=== PATIENT | male | born 1935 | race Caucasian/White ===

== ENCOUNTER 2022-01-18 19:33 | Inpatient (IN) | payer MEDICARE ==
[~2022-01-18] VITALS: Ht 175.3 cm; Wt 76.2 kg
[2022-01-18] MEDS ORDERED: SODIUM CHLORIDE 0.9% 1000ML 1,000 ML IV STA (19:36)
[2022-01-18] MEDS ORDERED: ONDANSETRON HCL INJ 2MG/ML 2ML 2 MG/ML VIAL IV STA (19:39)
[2022-01-18 20:14] LABS: BASOPHILS # (AUTO) 0.1 (0.0-0.1); BASOPHILS % 0.6 % (0.0-1.0); EOSINOPHILS # (AUTO) 0.1 (0.0-0.4); EOSINOPHILS % 1.2 % (0.0-6.0); HEMATOCRIT 42.3 % (38.2-49.6); HEMOGLOBIN 13.4 g/dL (14.0-18.0); LYMPHOCYTES # (AUTO) 1.4 (1.0-3.2); LYMPHOCYTES % 16.7 % (18.0-39.1); MEAN CORPUSCULAR HEMOGLOBIN 29.5 pg (28-32); MEAN CORPUSCULAR HGB CONC 31.7 g/dL (31-35); MEAN CORPUSCULAR VOLUME 93.2 fL (81-99); MONOCYTES # (AUTO) 0.7 (0.2-0.8); NEUTROPHILS # (AUTO) 5.8 (2.1-6.9); NEUTROPHILS % 71.9 % (38.7-80.0); PLATELET COUNT 173 x10e3/uL (140-360); RED BLOOD COUNT 4.54 x10e6/uL (4.3-5.7); RED CELL DISTRIBUTION WIDTH 15.3 % (11.7-14.4)
[2022-01-18 20:21] LABS: CLARITY,URINE CLEAR (CLEAR); COLOR,URINE YELLOW (YELLOW); LEUKOCYTE ESTERASE ,URINE NEGATIVE (NEGATIVE); NITRITE,URINE NEGATIVE (NEGATIVE); PROTEIN,URINE DIPSTICK NEGATIVE (NEGATIVE)
[2022-01-18 20:22] LABS: KETONES,URINE NEGATIVE (NEGATIVE); URINE UROBILINOGEN 1 mg/dL (0.2 - 1)
[2022-01-18 20:30] LABS: INR 1.69; PROTHROMBIN TIME 21.2 seconds (11.9-14.5)
[2022-01-18 20:31] LABS: PARTIAL THROMBOPLASTIN TIME 39.8 seconds (23.8-35.5)
[2022-01-18 20:36] LABS: BACTERIA,URINE FEW /HPF; EPITHELIAL CELLS,URINE RARE /LPF; RBC,URINE 21-50 /HPF (0-5); WBC,URINE (MAN) 0-5 /HPF (0-5)
[2022-01-18 20:39] LABS: ALBUMIN 4.1 g/dL (3.5-5.0); ANION GAP 16.5 mmol/L (8-16); CALCIUM 10.7 mg/dL (8.4-10.2); CREATININE, SERUM 1.52 mg/dL (0.72-1.25); POTASSIUM 4.5 mmol/L (3.5-5.1)
[2022-01-18 20:46] LABS: CREATINE KINASE MB 1.4 ng/mL (0-5.0)
[2022-01-18] MEDS ORDERED: IOPAMIDOL 370 MG/ML 100 ML INFUS..BTL INJ ONE (20:59)
[2022-01-18] MEDS ORDERED: Morphine 4mg INJECTION 4 MG/ML INJ IV PRN (22:30)
[2022-01-18] MEDS ORDERED: ONDANSETRON HCL INJ 2MG/ML 2ML 2 MG/ML VIAL IV PRN (22:30)
[2022-01-19] VITALS (8 sets, daily range): BP systolic 113–160; BP diastolic 60–72
[2022-01-19] MEDS: SODIUM CHLORIDE 0.9% 1000ML 1,000 ML IV SCH ×2 (01:54→06:11)
[2022-01-19 07:08] LABS: BASOPHILS # (AUTO) 0.1 (0.0-0.1); BASOPHILS % 0.9 % (0.0-1.0); EOSINOPHILS # (AUTO) 0.2 (0.0-0.4); EOSINOPHILS % 2.9 % (0.0-6.0); HEMATOCRIT 35.9 % (38.2-49.6); HEMOGLOBIN 11.4 g/dL (14.0-18.0); LYMPHOCYTES # (AUTO) 1.5 (1.0-3.2); LYMPHOCYTES % 23.1 % (18.0-39.1); MEAN CORPUSCULAR HEMOGLOBIN 29.4 pg (28-32); MEAN CORPUSCULAR HGB CONC 31.8 g/dL (31-35); MEAN CORPUSCULAR VOLUME 92.5 fL (81-99); MONOCYTES # (AUTO) 0.7 (0.2-0.8); MONOCYTES % 9.8 % (4.4-11.3); NEUTROPHILS # (AUTO) 4.1 (2.1-6.9); NEUTROPHILS % 62.2 % (38.7-80.0); PLATELET COUNT 153 x10e3/uL (140-360); RED BLOOD COUNT 3.88 x10e6/uL (4.3-5.7); RED CELL DISTRIBUTION WIDTH 15.4 % (11.7-14.4)
[2022-01-19 07:39] LABS: ANION GAP 12.3 mmol/L (8-16); CALCIUM 8.5 mg/dL (8.4-10.2); CREATININE, SERUM 1.08 mg/dL (0.72-1.25); POTASSIUM 4.3 mmol/L (3.5-5.1)
[2022-01-19 08:11] LABS: CREATINE KINASE MB 1.3 ng/mL (0-5.0)
[2022-01-19] MEDS ORDERED: ACETAMINOPHEN 325 MG TAB PO PRN (09:45)
[2022-01-19] MEDS ORDERED: MECLIZINE HCL 12.5 MG TAB PO PRN ×2 (12:15→14:00)
[2022-01-19] MEDS ORDERED: CARBAMAZEPINE200 MG PO (13:23)
[2022-01-19] MEDS ORDERED: COENZYME Q-10200 MG PO (13:23)
[2022-01-19] MEDS ORDERED: FISH OIL 1,0001 EAC2 PO (13:23)
[2022-01-19] MEDS ORDERED: DOCUSATE SODIU100 MG PO (13:23)
[2022-01-19] MEDS ORDERED: FLONASE ALLERG9.9 ML INH (13:23)
[2022-01-19] MEDS ORDERED: BUSPIRONE HCL10 MG PO (13:23)
[2022-01-19] MEDS ORDERED: FENOFIBRATE145 MG PO (13:23)
[2022-01-19] MEDS ORDERED: ARTIFICIAL TEAR15 ML OS (13:23)
[2022-01-19] MEDS ORDERED: SENNA LAX8.6 MG PO (13:23)
[2022-01-19] MEDS ORDERED: ACETAMINOPHEN325 M1 PO (13:23)
[2022-01-19] MEDS ORDERED: LOSARTAN POTAS100 MG PO (13:23)
[2022-01-19] MEDS ORDERED: MULTI-VITAMIN1 EACH PO (13:23)
[2022-01-19] MEDS ORDERED: BACLOFEN10 MG PO (13:23)
[2022-01-19] MEDS ORDERED: ASCORBIC ACID500 M2 PO (13:23)
[2022-01-19] MEDS ORDERED: XARELTO20 MG PO (13:23)
[2022-01-19] MEDS ORDERED: AMLODIPINE BESY10 MG PO (13:23)
[2022-01-19] MEDS ORDERED: MIRALAX17 GM PO (13:23)
[2022-01-19] MEDS ORDERED: CRESTOR10 MG PO (13:23)
[2022-01-19] MEDS ORDERED: ASPIRIN81 MG PO (13:23)
[2022-01-19] MEDS ORDERED: ONDANSETRON ODT8 MG PO (13:23)
[2022-01-19] MEDS ORDERED: EXCEDRIN MIGRA1 EAC3 PO (13:23)
[2022-01-19] MEDS ORDERED: SODIUM CHLORIDE 0.9% 1000ML 1,000 ML IV SCH (14:00)
[2022-01-19 14:39] LABS: CREATINE KINASE MB 1.4 ng/mL (0-5.0)
[2022-01-19] MEDS ORDERED: PROMETHAZINE 12.5MG/ NACL 0.9% 12.5 MG/50 ML BAG IV PRN (17:45)
[2022-01-19] MEDS: ENOXAPARIN INJ 80 MG/0.8 ML SYR SC SCH (20:38)
[2022-01-19] MEDS: AMLODIPINE BESYLATE 10 MG TAB PO SCH (20:39)
[2022-01-20] VITALS (7 sets, daily range): BP systolic 112–156; BP diastolic 56–96
[2022-01-20 06:09] LABS: BASOPHILS # (AUTO) 0.1 (0.0-0.1); BASOPHILS % 0.8 % (0.0-1.0); EOSINOPHILS # (AUTO) 0.2 (0.0-0.4); EOSINOPHILS % 2.4 % (0.0-6.0); HEMATOCRIT 35.1 % (38.2-49.6); HEMOGLOBIN 11.2 g/dL (14.0-18.0); LYMPHOCYTES # (AUTO) 1.5 (1.0-3.2); LYMPHOCYTES % 19.8 % (18.0-39.1); MEAN CORPUSCULAR HEMOGLOBIN 29.2 pg (28-32); MEAN CORPUSCULAR HGB CONC 31.9 g/dL (31-35); MEAN CORPUSCULAR VOLUME 91.4 fL (81-99); MONOCYTES # (AUTO) 0.6 (0.2-0.8); MONOCYTES % 7.9 % (4.4-11.3); NEUTROPHILS % 68.4 % (38.7-80.0); PLATELET COUNT 149 x10e3/uL (140-360); RED BLOOD COUNT 3.84 x10e6/uL (4.3-5.7); RED CELL DISTRIBUTION WIDTH 15.2 % (11.7-14.4)
[2022-01-20 06:36] LABS: ANION GAP 13.1 mmol/L (8-16); CALCIUM 8.1 mg/dL (8.4-10.2); CREATININE, SERUM 0.99 mg/dL (0.72-1.25); POTASSIUM 4.1 mmol/L (3.5-5.1)
[2022-01-20 06:55] LABS: THYROID STIMULATING HORMONE 1.267 uIU/mL (0.350-4.940)
[2022-01-20 07:19] LABS: % IRON SATURATION 27 % (15-50); IRON 84 ug/dL (65-175); TOTAL IRON BINDING CAPACITY 316 ug/dL (261-478); TRANSFERRIN 226 mg/dL (174-364)
[2022-01-20] MEDS ORDERED: FLUTICASONE PROPIONATE NASAL SPRAY NS SCH (09:00)
[2022-01-20] MEDS: ENOXAPARIN INJ 80 MG/0.8 ML SYR SC SCH ×2 (09:28→21:20)
[2022-01-20] MEDS: BISMUTH SUBSALICYLATE 262 MG/15 ML 8OZ BTL PO PRN (21:20)
[2022-01-20] MEDS: AMLODIPINE BESYLATE 10 MG TAB PO SCH (21:24)
[2022-01-21] VITALS (8 sets, daily range): BP systolic 116–149; BP diastolic 59–67
[2022-01-21] MEDS: RIVAROXABAN 20 MG TABLET PO SCH (08:52)
[2022-01-21] MEDS ORDERED: LOSARTAN POTASSIUM 25 MG TAB PO SCH (09:00)
[2022-01-21] MEDS: AMLODIPINE BESYLATE 10 MG TAB PO SCH (21:01)
[2022-01-21] MEDS: BISMUTH SUBSALICYLATE 262 MG/15 ML 8OZ BTL PO PRN (21:01)
[2022-01-22] VITALS (7 sets, daily range): BP systolic 121–141; BP diastolic 55–64
[2022-01-22] MEDS: LOSARTAN POTASSIUM 25 MG TAB PO SCH (08:25)
[2022-01-22] MEDS: RIVAROXABAN 20 MG TABLET PO SCH (08:25)
[2022-01-22] MEDS ORDERED: COZAAR25 MG PO (12:58)
[2022-01-22] MEDS ORDERED: Meclizine Hcl PO (12:58)
[2022-01-22] MEDS ORDERED: NORVASC10 MG PO (12:58)
[2022-01-22] MEDS ORDERED: XARELTO10 MG PO (12:58)
[2022-01-22] MEDS ORDERED: ONDANSETRON HCL 4 MG ORAL DISINTEGRATING TAB PO PRN (14:45)
[2022-01-22] MEDS: AMLODIPINE BESYLATE 10 MG TAB PO SCH (20:41)
[2022-01-23] VITALS: BP 128/76
[2022-01-23 07:58] VITALS: BP 125/58
[2022-01-23 08:10] VITALS: BP 125/58
[2022-01-23] MEDS: RIVAROXABAN 20 MG TABLET PO SCH (09:43)
[2022-01-23] MEDS: LOSARTAN POTASSIUM 25 MG TAB PO SCH (09:44)
[2022-01-23] MEDS ORDERED: LIDOCAINE 4% PATCH TP SCH (11:30)
[2022-01-23 11:36] VITALS: BP 108/65
== END 2022-01-23 15:19 | DRG 682 ==
LOC: ER 19:36 → ERHOLD 22:42 → MED/SURG3 01-19 01:05
PROVIDERS: ADMIT Internal Medicine; ATTEND Internal Medicine
DX: N17.9 Acute kidney failure, unspecified (principal); U07.1 COVID-19; I82.5Z2 Chronic embolism and thrombosis of unspecified deep veins of left distal lower extremity; K86.2 Cyst of pancreas; R64 Cachexia; R11.2 Nausea with vomiting, unspecified; R62.7 Adult failure to thrive; N20.0 Calculus of kidney; T50.915A Adverse effect of multiple unspecified drugs, medicaments and biological substances, initial encounter; Z79.01 Long term (current) use of anticoagulants; I10 Essential (primary) hypertension; Z88.8 Allergy status to other drugs, medicaments and biological substances; Z68.24 Body mass index [BMI] 24.0-24.9, adult; D64.9 Anemia, unspecified; Z66 Do not resuscitate; E86.0 Dehydration; I71.4 Abdominal aortic aneurysm, without rupture; R53.81 Other malaise
CPT/HCPCS: 36415; 70450; 71045; 74177; 80048; 80053; 81001; 82550; 82553; 83540; 83605; 83690; 83880; 84443; 84466; 84484; 85025; 85610; 85730; 87040; 93005; 97139; 99285; J1650; J2405; J7030; Q0162; Q9967